=== PATIENT | female | born 2000 | race American Indian/Alaskan Native ===

== ENCOUNTER 2022-05-17 12:34 | Emergency (ER) | payer SELFPAY ==
--- NOTE | 2022-05-17 13:58 | Emergency Department Report ---
Minor Respiratory - HPI Stated Complaint: SWOLLEN TONSILS/HEADACHE/STOMACH PAIN/FEVER Time Seen by Provider: 05/17/22 13:58 ED Review of Systems ROS: Stated complaint: SWOLLEN TONSILS/HEADACHE/STOMACH PAIN/FEVER Other details as noted in HPI Comment: All other systems reviewed and negative ED Past Medical Hx - Past Medical History Previous Medical History?: No - Surgical History Past Surgical History?: No - Family History Family history: no significant - Social History Smoking Status: Never Smoker Substance Use Type: Alcohol - Medications Home Medications: Home Medications Medication Instructions Recorded Confirmed Last Taken Type Amoxicillin [Trimox CAP] 500 mg PO BID #20 capsule 05/17/22 Unknown Rx Minor Respiratory Exam - Exam General: Vital signs noted. No distress. Alert and acting appropriately. HEENT: Yes Pharyngeal Erythema, Yes Pharyngeal Exudates, Yes Moist Mucous Membranes, No Rhinorrhea, No Conjuctival Injection, No Frontal Tenderness, No Maxillary Tenderness Ear: Neither TM Bulge, Neither TM Erythema, Neither EAC Pain, Neither EAC Discharge Neck: Yes Supple, No Adenopathy Lungs: Yes Good Air Exchange, No Wheezes, No Ronchi, No Stridor, No Cough, No Labored Respirations, No Retractions, No Use of Accessory Muscles, No Other Abnormal Lung Sounds Heart: Yes Regular, No Murmur Abdomen: Yes Normal Bowel Sounds, No Tenderness, No Peritoneal Signs Skin: No Rash, No Edema Neurologic: Alert and oriented, no deficits. Musculoskeletal: Unremarkable. ED Medical Decision Making - Medical Decision Making VS NOTED MANUALLY DOCUMENTED BY RN ABC INTACT TAKING PO - Differential Diagnosis PHARYNGITIS Critical care attestation.: If time is entered above; I have spent that time in minutes in the direct care of this critically ill patient, excluding procedure time. ED Disposition Clinical Impression: Pharyngitis Disposition: HOME / SELF CARE / HOMELESS Is pt being admited?: No Does the pt Need Aspirin: No Condition: Stable Instructions: Pharyngitis Additional Instructions: MEDS ORDERED UNTIL GONE DIET AND ACTIVITY TOLERATED STAY WELL HYDRATED WITH WATER FOLLOW UP WITH PCP NEXT WEEK TO BE SURE YOU ARE GETTING BETTER REFERRAL BELOW MOTRIN OR TYLENOL FOR PAIN Referrals: DANTE JOHNSON MD [Staff Physician] - 3-5 Days Forms: Work/School Release Form(ED) Time of Disposition: 14:00
[2022-05-17] MEDS ORDERED: IBUPROFEN 800 MG TAB PO ONE (14:00)
[2022-05-17 14:14] VITALS: BP 118/80
== END 2022-05-17 14:13 | disposition home or self-care (01) ==
LOC: ED 12:34
DX: J02.9 Acute pharyngitis, unspecified (principal); F10.20 Alcohol dependence, uncomplicated
CPT/HCPCS: 99282